=== PATIENT | male | born 1995 | race Hispanic/Latino ===

== ENCOUNTER 2017-09-04 20:54 | Emergency (ER) | payer BC, SELFPAY ==
[2017-09-04] MEDS ORDERED: Lidocaine 1% PF 5 ML VIAL ONE (21:12)
[2017-09-04] MEDS ORDERED: Bacitracin Zinc 1 Packet ONE (22:22)
== END 2017-09-04 22:28 | disposition home or self-care (01) ==
LOC: ERS 20:54
DX: S51.811A Laceration without foreign body of right forearm, initial encounter (principal); S20.411A Abrasion of right back wall of thorax, initial encounter; S00.81XA Abrasion of other part of head, initial encounter; F17.210 Nicotine dependence, cigarettes, uncomplicated; V80.010A Animal-rider injured by fall from or being thrown from horse in noncollision accident, initial encounter
CPT/HCPCS: 12001; J2001